=== PATIENT | female | born 1995 | race Caucasian/White ===

== ENCOUNTER 2023-04-15 23:35 | Observation (INO) | payer MEDICARE, OTHER ==
[~2023-04-15] VITALS: Ht 167.6 cm; Wt 79.9 kg
[~2023-04-15 23:35] MED LIST: ALBU90OI INH; AMOCLA875 PO; BREO ELLIPTA 21 EAC1 IH; LOPE2EL PO; OMEP20ER PO; ONDA4ODT MM; PROM25S PR; TYLENOL/ADVIL
[2023-04-16] VITALS (16 sets, daily range): BP systolic 107–143; BP diastolic 57–86
[2023-04-16 00:40] LABS: BASOPHILS ABSOLUTE AUTO 0.05 K/mm3 (0.00-0.23); BASOPHILS PERCENT AUTO 0 % (0-2); EOSINOPHILS ABSOLUTE AUTO 0.37 K/mm3 (0.00-0.68); EOSINOPHILS PERCENT AUTO 2 % (0-6); Hematocrit 40.8 % (33.0-51.0); Hemoglobin 13.8 g/dL (11.5-16.0); IMMATURE GRAN ABSOLUTE AUTO 0.06 K/mm3 (0.00-0.10); IMMATURE GRAN PERCENT AUTO 0 % (0-1); LYMPHOCYTES PERCENT AUTO 30 % (21-46); MONOCYTES ABSOLUTE AUTO 1.02 K/mm3 (0.16-1.47); MONOCYTES PERCENT AUTO 5 % (4-13); Mean Corpuscular HGB 30.7 pg (26.0-34.0); Mean Corpuscular HGB Conc 33.8 g/dL (31.5-36.5); Mean Corpuscular Volume 91 fL (80-100); Mean Platelet Volume 9.6 fL (9.1-12.4); NEUTROPHILS ABSOLUTE AUTO 12.06 K/mm3 (1.96-9.15); NEUTROPHILS PERCENT AUTO 63 % (41-73); Platelet Count 288 K/mm3 (150-400); RDW Coefficient Variation 12.3 % (11.7-14.2); RDW Standard Deviation 40.8 fL (35.1-46.3); White Blood Cell Count 19.26 K/mm3 (4.00-11.30)
[2023-04-16 01:01] LABS: Albumin, Blood 3.5 g/dL (3.4-5.0); Albumin/Globulin Ratio 0.9 (0.8-1.8); Bilirubin, Total 0.1 mg/dL (0.1-1.0); Bun/Creatinine Ratio 26.9 (12.0-20.0); Calcium, Blood 9.3 mg/dL (8.5-10.1); Creatinine, Blood 0.63 mg/dL (0.40-1.00); Potassium, Blood 4.2 mmol/L (3.5-5.5); Total Protein, Blood 7.5 g/dL (6.4-8.2)
[2023-04-16 01:40] LABS: Source, Urine Clean Catch
[2023-04-16 01:44] LABS: Bilirubin, Urine Neg (Neg); Blood, Urine Neg (Neg); Glucose Qualitative, Urine Neg (Neg); Ketones, Urine Neg (Neg); Leukocyte Esterase, Urine Neg (Neg); Nitrite, Urine Neg (Neg); Protein, Urine 2+ (Neg); Specific Gravity, Urine 1.015 (1.003-1.022); Urobilinogen, Urine NORM (Normal)
[2023-04-16 01:57] LABS: Appearance, Urine Clear (Clear); Color, Urine Yellow (P-Yellow)
[2023-04-16 01:58] LABS: Bacteria Many /hpf; Red Blood Cells, Urine Not Seen /hpf (0-2); Squamous Epithelial Cells Mod /hpf (Few); White Blood Cells, Urine 0-2 /hpf (0-5)
--- NOTE | 2023-04-16 05:06 | NUR ---
SHIFT SUMMERY. PT ARRIVED TO FLOOR AND TRANSFRED SELF TO BE. MOTHER IN ROOM AT BEDSIDE. INFORMED PT AND MOTHER PT WAS NPO AND EXSPANED REASONS WHY , MOTHER VERY CONCERNED SAID SHE FELT IF SURGERY IT WAS MOVING TOO FAST AND WANTED A POSSIBLE SECOND APPINION. SAID LAST TIME DAUGHTER [PT] WAS GIVEN MEDS AND SENT HOME. TOLD HER IT WAS UP TO THE DR AND NPO IS PROB JUST IN CASE. CALL LIGHT IN IN REACH.
--- NOTE | 2023-04-16 10:48 | NUR ---
OUT TO DAY SURG, [id number]
--- NOTE | 2023-04-16 16:24 | NUR ---
PATIENT ARRIVED FROM PACU TODAY AT 1600. POD 0 LAP MUNIRA PATIENT IS A&OX4. SHE IS ON 2L NC OF OXYGEN WITH >90% OXYGEN SATS BUT OTHERWISE VS ARE WNL. PATIENT REPORTS "I HAVE MORE NAUSEA THAN PAIN RIGHT NOW". A COOL WASH CLOTH WAS PLACED ON HER FOREHEAD TO HELP. SHE IS TOLERATING SMALL SIPS OF WATER AT THIS TIME. PATIENTS ABD HAS 4 LAP SITES WITH DERMABOND THAT ARE C/D/I. BOWEL TONES ARE HYPOACTIVE. SHE IS LAYING IN BED WITH CALL LIGHT IN REACH AND FAMILY AT BEDSIDE.
--- NOTE | 2023-04-16 18:36 | NUR ---
SUMMARY ASSUMED CARE OF PT THIS AFTERNOON, SLEPT MOST OF THE AFTERNOON IS GIVEN W/ INSTRUCTIONS WHEN PT WOKE UP, PT DEMONSTRATED PROPER USE, ASSSITED OOB TO VOID, TOLERATED WELL, PT ON 3L O2 VIA NC, 86-89% ON RA, DENIES ANY NEED FOR PAIN MEDS AT THIS TIME, VSS, NO ACUTE CHANGES THIS SHIFT.
[2023-04-17 04:25] VITALS: BP 110/64
[2023-04-17 04:30] VITALS: BP 110/64
[2023-04-17 07:16] VITALS: BP 128/79
--- NOTE | 2023-04-17 07:32 | NUR ---
SUMMARY PT RESTING IN BED, REPORTS PAIN ADEQUATELY CONTROLLED,NO C/O NAUSEA.
--- NOTE | 2023-04-17 07:42 | NUR ---
04/17/23 0742 Velma Claros VERIFICATIONS: EDIT CHART.
[2023-04-17 10:32] VITALS: BP 127/83
--- NOTE | 2023-04-17 10:52 | NUR ---
DISCHARGE PT WAS PROVIDED WITH WRITTEN AND VERBAL DISCHARGE INSTRUCTIONS BY MARIAN MEJIA. PT ABLE TO TOLERATE PO, PAIN MANAGED, PT ABLE TO AMBULATE, AND VSS AT TIME OF DISCHARGE. PT LEFT AT APPROXIMATELY 1035.
== END 2023-04-17 10:37 | disposition home or self-care (01) ==
LOC: ER 23:35 → MEDS 23:36 → SURS 23:36 → MEDS 04-16 04:26 → SURS 04-16 14:36
PROVIDERS: Physician Assistant; Surgery; ADMIT Surgery
PROC: BF5C2Z0 Other Imaging of Hepatobiliary System, All using Fluorescing Agent, Intraoperative (ICD-10-PCS; principal; 2023-04-16 13:30)
PROC: 0FT44ZZ Resection of Gallbladder, Percutaneous Endoscopic Approach (ICD-10-PCS; principal; 2023-04-16 13:30)
DX: K80.00 Calculus of gallbladder with acute cholecystitis without obstruction (principal); K82.A1 Gangrene of gallbladder in cholecystitis; J45.909 Unspecified asthma, uncomplicated; Z88.1 Allergy status to other antibiotic agents
CPT/HCPCS: 76705; 80053; 81001; 81025; 83690; 85025; 87086; 88304; 94640; 94664; 94760; 96365; 96374; 96375; 96376; 99285-25; A9270; G0378; J0295; J0696; J1100; J1885; J2250; J2405; J2704; J2795; J3010; J7030; J7120

== ENCOUNTER → 2025-04-24 | Outpatient (CLI) | payer MEDICARE, OTHER ==
[2025-05-07 13:33] LABS: HPV GENOTYPE 16 BY TMA Not Detected; HPV GENOTYPE 18/45 BY TMA Not Detected; HPV HIGH RISK BY TMA Detected; HPV SOURCE Cervical/Vag; HPVG SOURCE Cervical/Vag
== END | disposition home or self-care (01) ==
LOC: LAB 11:13 → LAB SHORT 11:13
PROVIDERS: Family Medicine
DX: Z01.419 Encounter for gynecological examination (general) (routine) without abnormal findings (principal)
CPT/HCPCS: 87624; 87625; G0123